=== PATIENT | male | born 1990 | race Caucasian/White ===

== ENCOUNTER → 2020-01-06 16:15 | Outpatient (CLI) | payer OTHER, SELFPAY ==
[2020-01-07 18:07] LABS: COVID19 Sendout Not Detected (Not Detect)
== END ==
PROVIDERS: Visit Provider Physician Assistant
DX: Z11.59 Encounter for screening for other viral diseases (principal); R19.7 Diarrhea, unspecified; R52 Pain, unspecified; R53.83 Other fatigue
CPT/HCPCS: 87635

== ENCOUNTER → 2020-01-08 09:33 | Outpatient (CLI) | payer OTHER, SELFPAY ==
[2020-01-08 11:21] LABS: Adenovirus F 40/41 Not Detected (Not Detect); Astrovirus Not Detected (Not Detect); Campylobacter Not Detected (Not Detect); Clostridium difficile toxin AB Not Detected (Not Detect); Cryptosporidium Not Detected (Not Detect); Cyclospora cayetanensis Not Detected (Not Detect); Entamoeba histolytica Not Detected (Not Detect); Enteroaggregative E.coli Not Detected (Not Detect); Enteropathogenic E.coli Not Detected (Not Detect); Enterotoxigenic E.coli It/st Not Detected (Not Detect); Giardia lamblia Not Detected (Not Detect); Norovirus GI/GII Not Detected (Not Detect); Plesiomonsa shigelloides Not Detected (Not Detect); Rotavirus A Not Detected (Not Detect); Salmonella Not Detected (Not Detect); Sapovirus Not Detected (Not Detect); Shiga-like toxin-prod E.coli Not Detected (Not Detect); Shigella/Enteroinvasive E.coli Not Detected (Not Detect); Vibrio Not Detected (Not Detect); Vibrio cholerae Not Detected (Not Detect); Yersinia enterocolitica Not Detected (Not Detect)
== END ==
PROVIDERS: Referring Provider Physician Assistant; Visit Provider Physician Assistant
DX: K52.9 Noninfective gastroenteritis and colitis, unspecified (principal)
CPT/HCPCS: 87507

== ENCOUNTER → 2020-01-09 10:52 | Outpatient (CLI) | payer OTHER, SELFPAY ==
[2020-01-09 11:39] LABS: Add Manual Diff / Slide Review NO; Basophils Absolute Auto 0 /uL (0-100); Basophils Percent Auto 0.5 % (0-2); Eosinophils Absolute Auto 200 /uL (0-450); Hematocrit 45.3 % (41-53); Hemoglobin 15.6 g/dL (13.5-17.5); Lymphocytes Absolute Auto 2100 /uL (1100-4500); Lymphocytes Percent Auto 33.1 % (25-40); Mean Corpuscular HGB Conc 34.4 % (30-36); Mean Corpuscular Hemoglobin 29.2 PG (26-34); Mean Corpuscular Volume 84.9 fL (80-100); Monocytes Absolute Auto 500 /uL (0-900); Monocytes Percent Auto 8.4 % (3-14); Neutrophils Absolute Auto 3600 /uL (1500-7000); Platelet Count 268 X10^3/uL (150-400); Red Blood Cell Count 5.34 X10^6/uL (4.5-5.9); Red Cell Distribution Width 12.8 % (11.6-14.8); White Blood Cell Count 6.5 X10^3/uL (4.5-11.0)
[2020-01-09 11:59] LABS: Alanine Aminotransferase 34 IU/L (<50); Albumin 4.5 g/dL (3.5-5.0); Albumin Globulin Ratio 1.7 (1.0-2.8); Alkaline Phosphatase 83 U/L (38-126); Amylase 40 U/L (30-110); Aspartate Aminotransferase 27 IU/L (17-59); BUN Creatinine Ratio 11.2 (6-22); Bilirubin Total 0.7 mg/dL (0.2-1.3); Blood Urea Nitrogen 10 mg/dL (9-20); Calcium 10.1 mg/dL (8.4-10.2); Carbon Dioxide 25 mmol/L (22-32); Chloride 103 mmol/L (98-107); Estimated Glomerular Filt Rate > 60.0 mL/min (>60); Globulin 2.7 g/dL (1.7-4.1); Glucose 98 mg/dL (70-100); HEMOLYSIS < 15 (0-50); Lipase 89 U/L (23-300); Sodium 137 mmol/L (137-145); Total Protein 7.2 g/dL (6.3-8.2)
[2020-01-10 08:13] LABS: HBsAg Screen Negative (Negative); Hepatitis A Antibody IgM Negative (Negative); Hepatitis B Core Antibody IgM Negative (Negative); Hepatitis C Antibody <0.1 s/co ratio (0.0-0.9)
== END ==
PROVIDERS: Referring Provider Physician Assistant; Visit Provider Physician Assistant
DX: K52.9 Noninfective gastroenteritis and colitis, unspecified (principal)
CPT/HCPCS: 36415; 80053; 80074; 82150; 83690; 85025

== ENCOUNTER → 2020-04-02 16:16 | Outpatient (CLI) | payer OTHER, SELFPAY ==
[2020-04-02 17:28] LABS: BUN Creatinine Ratio 15.7 (6-22); Blood Urea Nitrogen 14 mg/dL (9-20); Calcium 9.7 mg/dL (8.4-10.2); Carbon Dioxide 33 mmol/L (22-32); Chloride 101 mmol/L (98-107); Cholesterol 162 mg/dL (140-199); Estimated Glomerular Filt Rate > 60.0 mL/min (>60); Glucose 87 mg/dL (70-100); HDL Cholesterol 37 mg/dL (40-60); HEMOLYSIS < 15 (0-50); LDL Cholesterol Calculated 103 mg/dL (<100); Potassium 4.2 mmol/L (3.4-5.1); Sodium 138 mmol/L (137-145); Triglycerides 109 mg/dL (35-150)
== END ==
PROVIDERS: PCP Family Medicine; Referring Provider Family Medicine; Visit Provider Family Medicine
DX: Z13.220 Encounter for screening for lipoid disorders (principal)
CPT/HCPCS: 36415; 80048; 80061

== ENCOUNTER → 2023-05-29 14:01 | Outpatient (CLI) | payer OTHER, SELFPAY ==
--- NOTE | 2023-05-29 14:03 | DI.RAD.S_ITS ---
PROCEDURE: XR CHEST 2V INDICATIONS: Cough TECHNIQUE: 2 views of the chest were acquired. COMPARISON: None. FINDINGS: Surgical changes and devices: None. Lungs and pleura: Subtle increased opacification of posterior aspect left lung base. No pleural effusions or pneumothorax. Mediastinum: Mediastinal contours are normal. Heart size is normal. Bones and chest wall: No suspicious bony abnormalities. Soft tissues appear unremarkable. IMPRESSION: Subtle posterior left basilar opacification which could represent atelectasis or pneumonia. Dictated by: Jacquelyn Cisneros MD, PhD on 05/29/2023 at 14:23 Approved by: Jacquelyn Cisneros MD, PhD on 05/29/2023 at 14:24
== END ==
PROVIDERS: PCP Family Medicine; Referring Provider Physician Assistant; Visit Provider Physician Assistant
DX: R05.9 Cough, unspecified (principal)
CPT/HCPCS: 71046

== ENCOUNTER → 2024-09-01 09:19 | Outpatient (CLI) | payer OTHER, SELFPAY ==
[2024-09-01 09:59] LABS: Influenza A - CEPHEID Flu A NEGATIVE (NEGATIVE); Influenza B - CEPHEID Flu B POSITIVE (NEGATIVE); Respiratory Syncytial Virus Negative (Negative)
[2024-09-01 10:00] LABS: COVID-19 CEPHEID 4-PLEX PCR Negative (Negative)
== END ==
PROVIDERS: PCP Family Medicine; Visit Provider Physician Assistant Surgical
DX: R05.1 Acute cough (principal)
CPT/HCPCS: 0241U

== ENCOUNTER → 2025-03-20 14:24 | Outpatient (CLI) | payer OTHER, SELFPAY ==
[2025-03-20 15:26] LABS: Add Manual Diff / Slide Review NO; Hematocrit 44.7 % (41-53); Hemoglobin 15.3 g/dL (13.5-17.5); Lymphocytes Absolute Auto 2000 /uL (1100-4500); Mean Corpuscular HGB Conc 34.2 % (30-36); Mean Corpuscular Hemoglobin 29.0 PG (26-34); Mean Corpuscular Volume 85.0 fL (80-100); Platelet Count 254 X10^3/uL (150-400)
[2025-03-20 15:47] LABS: Alanine Aminotransferase 41 IU/L (<50); Albumin 4.5 g/dL (3.5-5.0); Albumin Globulin Ratio 1.6 (1.0-2.8); Alkaline Phosphatase 85 U/L (38-126); Blood Urea Nitrogen 16 mg/dL (9-20); Calcium 9.7 mg/dL (8.4-10.2); Carbon Dioxide 24 mmol/L (22-32); Chloride 103 mmol/L (98-107); Cholesterol 158 mg/dL (140-199); Estimated Glomerular Filt Rate > 60 mL/min (>60); Globulin 2.8 g/dL (1.7-4.1); Glucose 86 mg/dL (70-99); HDL Cholesterol 39 mg/dL (40-60); HEMOLYSIS < 15 (0-50); Potassium 3.8 mmol/L (3.4-5.1); Sodium 136 mmol/L (137-145); Total Protein 7.3 g/dL (6.3-8.2); Triglycerides 100 mg/dL (35-150)
== END ==
LOC: LAB 14:25
PROVIDERS: PCP Family Medicine; Referring Provider Family Medicine; Visit Provider Family Medicine
DX: Z13.220 Encounter for screening for lipoid disorders (principal); Z68.29 Body mass index [BMI] 29.0-29.9, adult
CPT/HCPCS: 36415; 80053; 80061; 85025